=== PATIENT | female | born 1965 ===

== ENCOUNTER 2023-10-15 04:08 | Day surgery (SDC) | payer OTHER ==
[2023-10-10 10:56] VITALS: BMI 22.4
[2023-10-15] MEDS ORDERED: PROPOFOL 20 ML ONE ×2 (07:09→08:13)
[2023-10-15] MEDS ORDERED: MIDAZOLAM HCL 2 MG/2 ML SINGLE DOSE VIAL ONE (07:09)
[2023-10-15] MEDS ORDERED: FENTANYL CITRATE/PF 50 MCG/ML VIAL ONE (07:10)
[2023-10-15] MEDS ORDERED: SODIUM CHLORIDE 0.9% P/F 10 ML VIAL IJ ONE (07:11)
[2023-10-15] MEDS ORDERED: LIDOCAINE HCL/PF 2% SDV 5ML VIAL ONE (07:11)
[2023-10-15] MEDS ORDERED: DEXAMETHASONE SOD PHOSPHATE 4 MG/1 ML VIAL ONE (07:11)
[2023-10-15] MEDS ORDERED: KETOROLAC TROMETHAMINE 30 MG/1 ML VIAL ONE (07:11)
[2023-10-15] MEDS ORDERED: ONDANSETRON 4 MG/2 ML VIAL ONE (07:11)
[2023-10-15] MEDS ORDERED: ONDANSETRON 4 MG/2 ML VIAL IVPUSH PRN ×2 (07:19→07:40)
[2023-10-15] MEDS ORDERED: oxyCODONE HCL 5 MG TABLET PO PRN ×2 (07:19→07:40)
[2023-10-15] MEDS ORDERED: LACTATED RINGERS SOLUTION 1,000 ML IV SCH (07:30)
[2023-10-15] MEDS ORDERED: IBUPROFEN 800 MG/8 ML IJ IVPB PRN (07:40)
[2023-10-15] MEDS ORDERED: IBUPROFEN 600 MG TABLET (FP) PO PRN (07:40)
[2023-10-15] MEDS ORDERED: ELECTROLYTE-148 SOLN 1,000 ML IV SCH (07:45)
[2023-10-15] MEDS ORDERED: ACETAMINOPHEN INJECTION 100 ML IVPB ONE (07:49)
[2023-10-15] MEDS ORDERED: SEVOFLURANE 250 ML BTL ONE (08:09)
[2023-10-15 09:30] VITALS: RESP 18
[2023-10-15 10:21] VITALS: BP 121/67; PULSE 68; TEMP 97.8
== END 2023-10-15 09:55 | disposition home or self-care (01) ==
LOC: JASU-SURG 04:08
PROVIDERS: ATTEND Obstetrics & Gynecology
PROC: 0UB98ZZ Excision of Uterus, Via Natural or Artificial Opening Endoscopic (ICD-10-PCS; principal; 2023-10-15 07:30)
DX: N95.0 Postmenopausal bleeding (principal); N84.0 Polyp of corpus uteri
CPT/HCPCS: 86850; 86900; 86901; 88305-TC; 93005; 93010; 94760; J0131